=== PATIENT | male | born 1955 | race Caucasian/White ===

== ENCOUNTER 2021-12-08 14:36 | Emergency (ER) | payer OTHER ==
[~2021-12-08 14:36] MED LIST: FLEXERIL10 MG PO; MEDROL 4MG DOSEP4 MG PO; NAPROXEN500 MG PO
[2021-12-08 16:05] LABS: BASOPHIL 1.1 % (0-2); EOSINOPHIL 2.7 % (0-7); HCT 44.7 % (42.0-52.0); HGB 15.5 g/dl (13.2-18.0); LYMPHOCYTE 25.5 % (15-48); MCH 33.2 pg (25.0-31.0); MCHC 34.7 g/dL (32.0-36.0); MCV 95.7 fL (78.0-100.0); MPV 9.7 fL (6.0-9.5); NEUTROPHIL 59.3 % (41-80); NRBC 0; PLT 249 K/uL (150-400); RBC 4.67 M/uL (4.70-6.00); RDW 12.6 % (11.5-14.0); WBC 7.5 K/uL (4.0-10.5)
[2021-12-08 16:34] LABS: BUN 9 mg/dL (7-18); BUN/CREAT RATIO (CALC) 11.4 RATIO; CHLORIDE 98 mmol/L (98-107); CO2 (BICARBONATE) 27 mmol/L (21-32); CREATININE 0.79 mg/dL (0.67-1.17); GLUCOSE 94 mg/dL (74-106); POTASSIUM 3.7 mmol/L (3.5-5.1)
[2021-12-08 16:38] LABS: C-REACTIVE PROTEIN <0.20 mg/dL (<=0.90)
[2021-12-08] MEDS ORDERED: PRINIVIL20 MG PO (17:35)
[2021-12-08] MEDS ORDERED: CLEOCIN300 MG PO (17:35)
== END 2021-12-08 17:54 | disposition home or self-care (01) ==
LOC: FER 14:36
PROVIDERS: Emergency Medicine
DX: L03.114 Cellulitis of left upper limb (principal); I10 Essential (primary) hypertension; Z20.822 Contact with and (suspected) exposure to COVID-19; Z28.310 Unvaccinated for COVID-19
CPT/HCPCS: 36415; 71045; 73130; 80048; 84145; 85025; 86140; 93005; J3490; U0002